=== PATIENT | female | born 1975 | race Two or more races ===

== ENCOUNTER 2016-07-20 13:11 | Emergency (ER) | payer SELFPAY ==
[2016-07-20 13:18] VITALS: BP 139/80
[2016-07-20] MEDS ORDERED: PREDNISONE 20 MG TABLET PO ONE (13:25)
[2016-07-20] MEDS ORDERED: IPRATROPIUM/ALBUTEROL 0.5-2.5 MG/3 ML AMPUL NEB ONE (13:26)
--- NOTE | 2016-07-20 13:31 | ER Document Report ---
ED Medical Screen (RME) - General Stated Complaint: DIFFICUTY BREATHING Mode of Arrival: Ambulatory Information source: Patient Notes: 41-year-old female presents to the emergency department complaining of worsening cough and shortness of breath over the last 2 days. Reports history of asthma. This has been using home albuterol symptoms with minimal temporary improvement. I have greeted and performed a rapid initial assessment of this patient. A comprehensive ED assessment and evaluation of the patient, analysis of test results and completion of the medical decision making process will be conducted by additional ED providers. - Related Data Allergies/Adverse Reactions: morphine Allergy (Verified 07/20/16 13:27) Physical Exam - Vital signs Vitals: Temp Pulse Resp BP Pulse Ox 97.8 F 97 16 139/80 H 93 07/20/16 13:18 07/20/16 13:18 07/20/16 13:18 07/20/16 13:18 07/20/16 13:18 - General General appearance: Alert In distress: None - Respiratory Respiratory status: No respiratory distress Breath sounds: Rhonchi - Scattered bilaterally, Wheezing - Expiratory - Cardiovascular Rhythm: Regular Pulses: Normal: Radial Normal capillary refill: Yes Course - Vital Signs Vital signs: Temp Pulse Resp BP Pulse Ox 97.8 F 97 16 139/80 H 93 07/20/16 13:18 07/20/16 13:18 07/20/16 13:18 07/20/16 13:18 07/20/16 13:18
[2016-07-20] MEDS ORDERED: ALBUTEROL SULFATE 0.083% NEB 2.5 MG/3 ML AMPUL NEB SCH (13:41)
== END 2016-07-20 20:49 | disposition left against medical advice (07) ==
LOC: ER 13:11
DX: Z53.9 Procedure and treatment not carried out, unspecified reason (principal); R06.02 Shortness of breath; R05 Cough; J45.909 Unspecified asthma, uncomplicated
CPT/HCPCS: 94640 ×2; 99281; 71020; J7512; J7620